=== PATIENT | female | born 1965 | race Caucasian/White ===

== ENCOUNTER 2023-09-09 08:23 | Emergency (ER) | payer BC, OTHER, SELFPAY ==
[2023-09-09] VITALS (8 sets, daily range): BP systolic 117–184; BP diastolic 68–107; PULSE 56–78; RESP 11–26; TEMP 36.8; O2SAT 92–100; BMI 27.4
--- NOTE | 2023-09-09 08:23 | ECG_ITS ---
APPROVED REPORT Exam: Resting ECG HR:69 bpm ECG Measurements Heart Rate 69 AXES OH 176 P 47 QRSd 95 QRS 25 QT 382 T 60 QTc 401 Conclusion SINUS RHYTHM LOW QRS VOLTAGE IN PRECORDIAL LEADS [QRS DEFLECTION < 1.0 mV IN CHEST LEADS] MODERATE ST DEPRESSION [0.05+ mV ST DEPRESSION] ABNORMAL ECG UNCONFIRMED REPORT Electronically signed by : Mick Riley MD 09/09/2023 17:47:12
--- NOTE | 2023-09-09 08:28 | XR_ITS ---
FINAL REPORT TECHNIQUE: Single view chest CLINICAL HISTORY: chest pain FINDINGS: A single view of the chest was obtained. The heart and mediastinum are within normal limits. The lungs are clear. There is no pneumothorax. There are postoperative changes to the right shoulder. IMPRESSION: No acute cardiopulmonary process. Reviewed, Interpreted and Dictated by Manoj Perkins III, MD Transcribed by Christal Wakefield Authenticated and [facility]
--- NOTE | 2023-09-09 08:30 | PC.NURSE ---
Dr. Vergara at BS for pt eval
--- NOTE | 2023-09-09 08:31 | PC.NURSE ---
dr abarca at bedside
--- NOTE | 2023-09-09 08:33 | CT_ITS ---
FINAL REPORT CLINICAL HISTORY: new onset headache FINDINGS: Axial images of the head were obtained without contrast. Coronal reformatted images were also obtained.This study was performed with techniques to keep radiation doses as low as reasonably achievable (ALARA). Individualized dose reduction techniques using automated exposure control or adjustment of mA and/or kV according to the patient's size were employed. There is no evidence of intracranial hemorrhage or mass. The ventricular size is within normal limits. There is no evidence of shift of the midline structures. No abnormal extra axial fluid collection is identified. No skull abnormality is seen on the bone window images. There is mucosal thickening of multiple sinuses. Fluid is seen in the maxillary sinuses consistent with acute maxillary sinusitis. IMPRESSION: No acute intracranial abnormality. Acute maxillary sinusitis. Reviewed, Interpreted and Dictated by Manoj Perkins III, MD Transcribed by Christal Wakefield Authenticated and [facility]
[2023-09-09 08:42] LABS: Basophils # 0.1 K/mm3 (0-0.2); Basophils % 0.7 % (0.1-2.0); Eosinophils # 0.3 K/mm3 (0.0-0.4); Eosinophils % 4.4 % (0.1-12.0); Hemoglobin 14.4 g/dL (12.2-16.2); Lymphocytes # 2.4 K/mm3 (0.7-4.5); Lymphocytes % 35.4 % (10-50); Mean Corpuscular HGB Conc 33.5 g/dL (31.8-35.4); Mean Corpuscular Hemoglobin 32.8 pg (27.0-31.2); Mean Corpuscular Volume 97.6 fl (81-99); Mean Platelet Volume 7.7 fl (7.4-10.4); Monocytes # 0.3 K/mm3 (0.1-1.0); Monocytes % 3.7 % (1.7-9.3); Neutrophils # 3.7 K/mm3 (1.8-7.8); Neutrophils % 55.7 % (37.0-80.0); Platelet Count 404 K/mm3 (142-424); Red Blood Count 4.41 M/mm3 (4.20-5.40); Red Cell Distribution Width 13.4 % (11.5-17.5); White Blood Count 6.7 K/mm3 (4.8-10.8)
[2023-09-09] MEDS: NITROGLYCERIN 0.4MG SL TABLET 0.400000000000000022 MG SL (08:53)
[2023-09-09] MEDS: ASPIRIN 81MG CHEWABLE TABLET 324 MG PO (08:54)
[2023-09-09] MEDS: RINGERS SOLUTION,LACTATED 500 ML 250 ML IV (08:55)
[2023-09-09] MEDS: PROCHLORPERAZINE 10MG/2ML VIAL 10 MG IV (08:55)
[2023-09-09] MEDS: ACETAMINOPHEN 1,000MG/100ML VIAL 1000 MG IV (08:55)
[2023-09-09] MEDS: KETOROLAC 30MG/ML VIAL 15 MG IV (08:55)
--- NOTE | 2023-09-09 08:55 | PC.NURSE ---
Pt gone to RAD via stretcher
--- NOTE | 2023-09-09 08:56 | HMH.EDCP ---
Discharge Plan Disposition Patient Disposition: Home, Self-Care Prescriptions Prescriptions: New ondansetron 4 mg tablet,disintegrating 4 mg PO Q6H PRN (Reason: nausea and vomiting) Qty: 10 0RF No Action omeprazole 10 mg capsule,delayed release(DR/EC) 10 mg PO DAILY turmeric-turmeric ext-pepper 500-3 mg capsule 1 mg PO DAILY bisoprolol-hydrochlorothiazide 2.5-6.25 mg tablet 1 tab PO DAILY bupropion HCl [Wellbutrin XL] 300 mg tablet extended release 24 hr 300 mg PO DAILY Qty: 90 0RF Wegovy 1.7 mg/0.75 mL pen injector 1.7 mg SQ WEEKLY atorvastatin 10 mg tablet 10 mg PO DAILY Referrals Follow up/Referrals: Provider,Referral, MD [Referring] - See instructions Activity Restrictions/Add. Instructions Additional Instructions/Restrictions: Call your family doctor to establish care for this visit to the emergency department and schedule follow-up within 48 hours to ensure improvement. If you have any worsening of your condition or any other concerning signs or symptoms, return to the emergency department or your primary care doctor for further evaluation. Take Tylenol 1000 mg every 6 hours (4 times daily) and ibuprofen 400 mg every 6 hours (4 times daily) as needed with food and water to prevent GI upset and kidney damage. Clinical Impressions Clinical Impression: Migraine, Chest pain Discharge ED Provider: Jl Vergara [facility] General Chief Complaint: Chest Pain Stated Complaint: Chest Pain Time Seen by Provider: 09/09/23 08:28 Mode of Arrival: Ambulatory Source of Information: Patient Limitations: No Limitations Description of Symptoms (Recalled from ER Triage Doc. by RN): Pt. states she feels like she has a migraine. She states she has a headache that started about 2 hours ago and has had three episodes of vomiting this morning. She complains of mild chest discomfort. She takes Wegovy and has not taken it since but took a dose last night. History of Present Illness HPI narrative: 58-year-old female history of hypertension presenting with multiple complaints. Patient states that she was brushing her teeth earlier this morning on 09/09 and started having a headache. Headache has been crescendo since that time. It is intense, photophobic and associated with vomiting. Patient states that she has had migraines in the past as a child, but has not had headaches of recent past. Denies any other neurologic deficits, vision changes, or any other concerns. Patient is having associated chest pressure that is tight, squeezing, associated with shortness of breath. Does not radiate, not associated with diaphoresis. Has been taking her Medicare prescribed Related Data Home Medications Medication Instructions Recorded Confirmed bisoprolol 2.5 1 tab PO DAILY 03/16/19 09/09/23 mg-hydrochlorothiazide 6.25 mg tablet omeprazole 10 mg capsule,delayed 10 mg PO DAILY 03/16/19 09/09/23 release turmeric 500 mg-black pepper 1 mg PO DAILY 03/16/19 09/09/23 extract 3 mg capsule atorvastatin 10 mg tablet 10 mg PO DAILY 09/09/23 09/09/23 semaglutide (weight loss) 1.7 1.7 mg SQ WEEKLY 09/09/23 09/09/23 mg/0.75 mL subcutaneous pen injector (Wegovy) Previous Rx's Medication Instructions Recorded bupropion HCl 300 mg 24 hr tablet, 300 mg PO DAILY #90 tabs 07/23/23 extended release (Wellbutrin XL) ondansetron 4 mg disintegrating 4 mg PO Q6H PRN nausea and 09/09/23 tablet vomiting #10 tabs Allergies Allergy/AdvReac Type Severity Reaction Status Date / Time No Known Allergies Allergy Verified 07/23/23 15:57 [facility] Disclaimer: The information contained in this section may have been updated after the patient was seen, as this information can be updated by other users. Medical History (Updated 09/09/23 @ 11:23 by Jl Vergara MD) Attention deficit disorder (ADD) in adult Concussion History of high blood pressure Surgical History (Updated 02/18/23 @ 14:44 by Taylor Brady APRN) History of hysterectomy Social History (Updated 02/18/23 @ 14:42 by Taylor Brady APRN) Smoking Status: Never smoker second hand exposure: No alcohol intake: current counseling given: No substance use type: denies use counseling given: No current occupational status: employed Travel in the last 8 weeks: None adopted: No caregiver/support person: No foster care: No household members: spouse housing: house lives independently: Yes marital status: number of children: 3 number of grandchildren: 4 education level: college Hx Recent Travel: No sexually active: No caffeine: No physical activity: none working smoke detector in home: Yes fire extinguisher in home: Yes carbon monox detector in home: No firearms in home: Yes firearms unloaded and locked: Yes do you feel safe at home: Yes victim of physical abuse: No victim of emotional abuse: No victim of sexual abuse: No would you like helpful sources: No ROS Obtained: Yes All systems reviewed & no additional complaints except as documented Physical Exam General General appearance: alert Neck Neck exam: Present trachea midline Chest Chest inspection: Present normal inspection and symmetric chest wall rise Respiratory Respiratory exam: Present normal lung sounds bilaterally; Absent respiratory distress, wheezes, stridor, accessory muscle use or prolonged expiratory phase Cardiovascular Cardiovascular exam: Present regular rate and normal rhythm Extremities Exam Extremities exam: Absent edema Neurological Exam Neurological exam: Present alert, oriented X3 and CN II-XII intact Skin Skin exam: Present warm and dry; Absent cyanosis, diaphoresis or pallor HEART Score HEART Score HEART Score assessment performed?: Yes History (anamnesis): Slightly suspicious ECG: Normal Age: 45-65 years Risk factors: 1-2 risk factors Troponin: </= normal limit HEART Score: 2 Critical Care Critical Care Time Critical Care Time: No Medical Decision Making Medical Records Medical records reviewed: Yes I reviewed the patient's medical records. Henri Inquiry Pt receiving controlled substance: No Henri was queried for this patient: No Vital Signs Vital Signs: 09/09/23 08:26 09/09/23 08:31 09/09/23 09:30 Temperature 98.3 F Temperature Source Oral Pulse Rate 73 61 Pulse Rate [Right Brachial] 78 Respiratory Rate 26 H 19 13 Blood Pressure 184/102 H 145/86 H Blood Pressure [Right Arm] 170/107 H Blood Pressure Mean Blood Pressure Mean [Right Arm] 128 Blood Pressure Source [Right Arm] Automatic Cuff Blood Pressure Position [Right Arm] Sitting 02 Sat by Pulse Oximetry 100 100 98 Oxygen Delivery Method Room Air Room Air Room Air 09/09/23 10:00 09/09/23 10:31 09/09/23 11:00 Temperature Temperature Source Pulse Rate 60 59 L 63 Pulse Rate [Right Brachial] Respiratory Rate 12 14 12 Blood Pressure 133/75 131/70 117/68 Blood Pressure [Right Arm] Blood Pressure Mean 84 Blood Pressure Mean [Right Arm] Blood Pressure Source [Right Arm] Blood Pressure Position [Right Arm] 02 Sat by Pulse Oximetry 94 L 94 L 95 Oxygen Delivery Method Room Air Room Air 09/09/23 11:30 Temperature Temperature Source Pulse Rate 56 L Pulse Rate [Right Brachial] Respiratory Rate 11 L Blood Pressure 129/73 Blood Pressure [Right Arm] Blood Pressure Mean 92 Blood Pressure Mean [Right Arm] Blood Pressure Source [Right Arm] Blood Pressure Position [Right Arm] 02 Sat by Pulse Oximetry 92 L Oxygen Delivery Method Lab Data Labs: Lab Results 09/09/23 08:31: WBC 6.7, RBC 4.41, Hgb 14.4, Hct 43.0, MCV 97.6, MCH 32.8 H, MCHC 33.5, RDW 13.4, Plt Count 404, MPV 7.7, Neut % (Auto) 55.7, Lymph % (Auto) 35.4, Lincoln % (Auto) 3.7, Eos % (Auto) 4.4, Baso % (Auto) 0.7, Neut # (Auto) 3.7, Lymph # (Auto) 2.4, Lincoln # (Auto) 0.3, Eos # (Auto) 0.3, Baso # (Auto) 0.1, Sodium 139, Potassium 3.5, Chloride 102, Carbon Dioxide 28, Anion Gap 12.5, BUN 13, Creatinine 0.70, Estimated Creat Clear 109, Estimated GFR 87, Est GFR ( Amer) 105, Glucose 96, Calcium 9.6, Total Bilirubin 0.7, AST 50 H, ALT 32, Alkaline Phosphatase 90, Troponin I < 0.01, Total Protein 7.6, Albumin 4.4, Globulin 3.2, Albumin/Globulin Ratio 1.4 09/09/23 11:21: Troponin I 0.02 09/09/23 08:31 09/09/23 08:31 Response Orders (Tests/Meds): ED MEDICATIONS Generic Name Dose Route Start Last Admin Trade Name Freq PRN Reason Stop Dose Admin Nitroglycerin 0.4 mg 09/09/23 08:35 09/09/23 08:53 Nitroglycerin 0.4mg Sl Tablet SL 10/09/23 08:34 0.4 mg Q5MINP PRN Administration Chest Pain Discontinued Medications Generic Name Dose Route Start Last Admin Trade Name Freq PRN Reason Stop Dose Admin Acetaminophen 1,000 mg 09/09/23 08:33 09/09/23 08:55 Acetaminophen 1,000mg/100ml Vial IV 09/09/23 08:34 1,000 mg ONCE ONE Administration Aspirin 324 mg 09/09/23 08:28 09/09/23 08:54 Aspirin 81mg Chewable Tablet PO 09/09/23 08:29 324 mg ONCE ONE Administration Dexamethasone 10 mg 09/09/23 10:22 09/09/23 10:26 Dexamethasone 4mg Tablet PO 09/09/23 10:23 10 mg ONCE ONE Administration Lactated Ringer's 500 mls @ 250 mls/hr 09/09/23 08:34 09/09/23 08:55 Lactated Ringer's 500ml IV 09/09/23 10:33 250 mls/hr .Q2H ONE Administration Ketorolac Tromethamine 15 mg 09/09/23 08:33 09/09/23 08:55 Ketorolac 30mg/Ml Vial IV 09/09/23 08:34 15 mg ONCE ONE Administration Prochlorperazine Edisylate 10 mg 09/09/23 08:33 09/09/23 08:55 Prochlorperazine 10mg/2ml Vial IV 09/09/23 08:34 10 mg ONCE ONE Administration ORDERS Category Date Time Status CT head/brain wo con Stat Cat Scan 09/09/23 08:33 Completed CXR --portable [XR chest portable] Stat Exams 09/09/23 08:28 Completed CBC w/Auto Diff [Complete Blood Count Auto Diff] Stat Lab 09/09/23 08:31 Completed CMP [Comprehensive Metabolic Panel] Stat Lab 09/09/23 08:31 Completed Trop I [Troponin I] Stat Lab 09/09/23 08:31 Completed Troponin I Q3H Lab 09/09/23 11:21 Completed Troponin I Q3H Lab 09/09/23 14:30 Ordered ECG initial Besson Routine Y 09/09/23 08:23 Completed MDM Narrative Medical Decision Narrative: 58-year-old female history of hypertension presenting with multiple complaints. Patient states that she was brushing her teeth earlier this morning on 09/09 and started having a headache. Headache has been crescendo since that time. It is intense, photophobic and associated with vomiting. Patient states that she has had migraines in the past as a child, but has not had headaches of recent past. Denies any other neurologic deficits, vision changes, or any other concerns. Patient is having associated chest pressure that is tight, squeezing, associated with shortness of breath. Does not radiate, not associated with diaphoresis. Has been taking her Medicare prescribe. It to be noted that patient has been taking semaglutide subcutaneously, the effects of which are difficult to discern in this case complicating care. History was obtained via conversation with patient. On arrival, patient hemodynamically stable, alert, oriented x4, appropriate, GCS 15, moving all extremities spontaneously, pupils equal and reactive to light. Full physical exam performed and significant for anxious appearing woman in no acute distress. Tearful. Not actively retching or vomiting on my exam. Neurologically intact. Cardiac exam normal. Pulses equal and symmetric. Differential includes migraine, headache, intracranial hemorrhage, intracranial mass, ACS, MA, pneumonia, pneumothorax, anxiety, among others. Patient was given 324 mg aspirin, Compazine, Toradol, Tylenol, fluid bolus, nitroglycerin for symptomatic management and correction of underlying abnormalities. Workup independently interpreted and significant for normal CBC or chemistry. Troponin negative. CT head without acute intracranial hemorrhage or mass. See radiology read for full review of final results. Independent interpretation of EKG shows sinus rhythm 69 beats a minute no ST or T wave changes concerning for acute ischemia. OK, QRS, QT intervals within normal limits. Heart score 2. Because pain started just before patient arrival, patient placed in observation. Patient was placed in observation beginning at 8:45 AM in order to obtain serial delta troponins and cardiac monitoring, as well as obtain headache cocktail for severe migraine and determine need for admission versus home-going. The patient was provided nitroglycerin, headache cocktail while awaiting results. Independent interpretation of results demonstrated negative delta troponin. On reevaluation, patient stating that her headache is completely resolved and she is feeling much better. No longer nauseated. At this time, I feel patient is appropriate for discharge. Total observation time 3 hours. Because patient at baseline without signs or symptoms of clinical decompensation, deemed appropriate for discharge. Results were relayed to patient who voiced understanding and were agreeable to outpatient management and follow up. At the time of discharge the patient was hemodynamically stable, tolerating PO, and mobilizing appropriately.
[2023-09-09 08:58] LABS: Chloride 102 mmol/L (98-107); Potassium 3.5 mmoL/L (3.5-5.1); Sodium 139 mmol/L (136-145)
[2023-09-09 09:01] LABS: Alanine Aminotransferase 32 U/L (12-78); Albumin Level 4.4 g/dl (3.5-5.0); Albumin/Globulin Ratio 1.4 (1.1-1.8); Alkaline Phosphatase 90 U/L (38-126); Anion Gap 12.5 mEq/L (5-15); Aspartate Amino Transferase 50 U/L (14-36); Bilirubin,Total 0.7 mg/dl (0.2-1.3); Blood Urea Nitrogen 13 mg/dl (7-17); Calcium 9.6 mg/dl (8.4-10.2); Carbon Dioxide 28 mmol/L (22.0-30.0); Creatinine Clearance Estimated 109 mL/min (50-200); Estimated Glomerular Filt Rate 87 ml/min (>60); GFR (African American) 105 ML/MIN (>60); Globulin 3.2 g/dL (1.3-3.2); Glucose 96 mg/dl (74-100); Total Protein,Serum 7.6 g/dl (6.3-8.2)
[2023-09-09 09:14] LABS: Troponin I < 0.01 ng/ml (0.00-0.034)
--- NOTE | 2023-09-09 09:29 | PC.NURSE ---
Pt back to room from [facility]
--- NOTE | 2023-09-09 10:21 | PC.NURSE ---
Rounded on pt. Warm blanket provided. No needs at this time.
[2023-09-09] MEDS: DEXAMETHASONE 4MG TABLET 10 MG PO (10:26)
--- NOTE | 2023-09-09 11:04 | PC.NURSE ---
Dr. Vergara at BS to update pt on results and current POC
[2023-09-09 11:46] LABS: Troponin I 0.02 ng/ml (0.00-0.034)
== END 2023-09-09 12:11 | disposition home or self-care (01) ==
PROVIDERS: Emergency Provider Emergency Medicine; PCP Nurse Practitioner Family
DX: R07.9 Chest pain, unspecified (principal); G43.909 Migraine, unspecified, not intractable, without status migrainosus; R11.10 Vomiting, unspecified
CPT/HCPCS: 70450; 71045; 80053; 84484; 85025; 93005; 96361; 96374; 96375; 99285; J0131

== ENCOUNTER 2023-11-25 15:05 | Outpatient (CLI) | payer BC, OTHER, SELFPAY ==
[2023-11-25 15:35] VITALS: PULSE 73; PULSE 76
[2023-11-25] MEDS: ALBUTEROL 0.083% 2.5 MG/3 ML NEB IH (15:35)
== END 2023-11-25 23:59 ==
PROVIDERS: PCP Internal Medicine; Visit Provider Nurse Practitioner Family
DX: J40 Bronchitis, not specified as acute or chronic (principal)
CPT/HCPCS: 94060; 94640

== ENCOUNTER 2024-02-06 07:19 | Outpatient (CLI) | payer BC, OTHER, SELFPAY ==
--- NOTE | 2024-02-06 | CA_ITS ---
APPROVED REPORT Exam: Pharmacologic Technologist: Mirna Pedraza, Ht: 5 ft 6 in Wt: 169 lbs BSA: 1.86 m2 HR: 60 bpm BP: 155/86 mmHg Rhythm: NSR Medical History Medications: Omeprazole,,,,, Atorvastatin,,,,, Fluoxetine,,,,, Trazodone,,,,, TUrmeric,,,,, Estradilol,,,,, BisOPROLOL-HCTZ,,,,, WELLBUTRIN XL,,,,, WEgovy,,,,, [place],,,,, Stress Test Details Test: LEXISCAN Reason for pharmacologic stress test: physical limitation. HR Resting HR: 65 bpm Max Heart Rate (APMHR): 164 bpm Max HR Achieved: 85 bpm Target HR (85% APMHR): 139 bpm % of APMHR: 52 Recovery HR: 66 bpm BP Resting BP: 155.0/86.0 mmHg Max BP: 158.0/91.0 mmHg Recovery BP: 141.0/81.0 mmHg ECG Resting ECG: NSR, low voltage QRS Stress ECG: No significant ST changes Arrhythmia: Occasional PVCs Clinical Exercise duration: 04:00 min Highest Stage Achieved: Exercise capacity: 1.0 METs Stress ECG Conclusion Symptoms: SOA, head discomfort. No CP. Arrhythmias/Ectopy: Occasional PVC. ST-T Changes: No significant ST changes. Conclusion: Unremarkable Lexiscan stress. Myoview images are reported separately. Test Summary REST . . . . . . . Resting REST 04:32 . . 65 . 155/ 86 . . Stage 1 01:00 . . 77 . . . . Stage 2 01:00 . . 73 . 158/ 91 . . Stage 3 01:00 . . 72 . 147/ 83 . . Stage 4 01:00 . . 71 . 152/ 75 . Stop exercise at 04:00 RECOVERY 01:00 . . 69 . . . . RECOVERY 02:00 . . 71 . 142/ 83 . . RECOVERY 03:00 . . 66 . 141/ 81 . . RECOVERY 03:23 . . 67 . 141/ 81 . . Electronically signed by : Kasey Boston MD 02/09/2024 00:53:29
--- NOTE | 2024-02-06 07:19 | NM_ITS ---
APPROVED REPORT Exam: Nuclear Stress Test Indication: chest pain..soa..palpitations..fatigue Patient Location: Outpatient Stress Tech: Mirna Andrade [place] Tech:Noelle PelaezREENA RT(R)(N) Ht: 5 ft 5 in Wt: 165 lbs Bra Size: 38f HR: 65 bpm BP: 155/86 mmHg BSA: 1.82 m2 Rhythm: NSR TID: 0.99 BMI: 27.4 History: chest pain..soa..palpitations..fatigue Procedure: Patient received 0.4 mg of intravenous Lexiscan, resting heart rate 65 bpm, resting blood pressure 155/86 mmHg, with Lexiscan maximum heart rate achieved was 85 bpm which is 85 % of the maximum predicted heart rate and blood pressure was 158/91 mmHg. Cardiac Stress and Resting SPECT Images: Cardiac Stress and Resting SPECT images were obtained using technetium 99m Myoview 32.4 mCi stress and 10.98 mCi at rest. Resting and stress imaging in supine and prone positions demonstrate no evidence of fixed or reversible perfusion defects. Gated imaging demonstrates normal global and regional LV systolic function. LVEF is calculated at 63%. Conclusion: No evidence of fixed or reversible perfusion defects. Gated imaging demonstrates normal global and regional LV systolic function. LVEF is calculated at 63%. Electronically signed by : Kasey Boston MD 02/09/2024 00:57:06
--- NOTE | 2024-02-06 07:27 | CA_ITS ---
APPROVED REPORT EXAM: Comprehensive 2D, Doppler, and color-flow Echocardiogram Cotton Wringer: Vickie Dumont RDCS Ht: 5 ft 5 in Wt: 169lbs BSA: 1.84 BP: 121/77 mmHg Indications: SOA,ABN EKG,CP M-Mode Dimensions RVDd 2.51 cm (0.9-2.6) LA Diam 3.01 cm (1.9-4.0) LVDd 5.09 cm (3.5-5.7) LVDs 3.80 cm (3.5-5.7) IVSd 0.65 cm (0.6-1.1) PWd 0.72 cm (0.6-1.1) EF (Teich) 49.70% FS 25.30% EDV (Teich) 123.20 mL ESV (Teich) 62.00 mL LV Diastology E Decel Time 113 (160-240 msec) E/A Ratio 1.2 Aortic Valve AI PHT 746.00 ms Mitral Valve MV E Max Harshad. 100.0 (40-130 cm/s) MV A Velocity 84.0 (40-130 cm/s) E/A Ratio 1.19 MV PHT 33.0 ms Tricuspid Valve TR P. Velocity 227.00 cm/s RAP Estimate 10.00 mmHg RVSP 30.70 mmHg Left Ventricle The left ventricle is normal size. The left ventricular systolic function is normal. The left ventricular ejection fraction is within the normal range. There is normal left ventricular wall thickness. There is normal LV segmental wall motion. The left ventricular diastolic function is normal. LVEF is 55%. Right Ventricle The right ventricle is normal size. The right ventricular systolic function is normal. Atria The left atrium size is normal. The right atrium size is normal. There is no Doppler evidence of interatrial shunt. Aortic Valve The aortic valve is mildly thickened. There is no aortic valvular stenosis. Mild aortic regurgitation. Mitral Valve The mitral valve leaflets are mildly thickened. No evidence of mitral valve stenosis. Mild mitral regurgitation. Tricuspid Valve The tricuspid valve leaflets are thin and pliable. Mild tricuspid regurgitation. RVSP is normal. Pulmonic Valve The pulmonary valve is normal in structure. Mild pulmonic regurgitation. Great Vessels The aortic root is normal in size. The ascending aorta is not well-visualized. IVC is normal in size and collapses >50% with inspiration. Pericardium There is no pericardial effusion. Other Information Study Quality: Fair Conclusion Normal biventricular systolic function. Mild AI, mild MR, mild TR, mild VT. Electronically signed by : Kasey Boston MD 02/09/2024 00:37:39
[2024-02-06] MEDS: ISOTOPE MYOVIEW (PER STUDY) 1 DOSE IV (10:18)
[2024-02-06] MEDS: REGADENOSON 0.4MG/5ML SYRINGE 0.400000000000000022 MG IV (10:18)
[2024-02-06] MEDS: SODIUM CHLORIDE 0.9% 10ML SYR (RAD ONLY) 10 ML IV ×2 (10:18)
== END 2024-02-06 23:59 | disposition home or self-care (01) ==
LOC: RAD 07:19
PROVIDERS: PCP Nurse Practitioner Family; Visit Provider Nurse Practitioner
DX: R94.31 Abnormal electrocardiogram [ECG] [EKG] (principal); R06.00 Dyspnea, unspecified; R07.9 Chest pain, unspecified
CPT/HCPCS: 78452; 93017; 93018; 93306; A9502; J2785

== ENCOUNTER 2024-11-23 16:45 | Outpatient (CLI) | payer BC, OTHER, SELFPAY ==
--- NOTE | 2024-11-23 16:54 | XR_ITS ---
PROCEDURE INFORMATION: Exam: XR Chest Exam date and time: 11/23/2024 4:55 PM Age: 59 years old Clinical indication: Cough; Additional info: Cough/congestion TECHNIQUE: Imaging protocol: Radiologic exam of the chest. Views: 2 views. COMPARISON: CR XR CHEST PORTABLE 09/09/2023 8:56 AM FINDINGS: Lungs: Unremarkable. No consolidation. Pleural spaces: Unremarkable. No pleural effusion. No pneumothorax. Heart/Mediastinum: Unremarkable. No cardiomegaly. Bones/joints: Unremarkable. IMPRESSION: No acute findings.
== END 2024-11-23 23:59 | disposition home or self-care (01) ==
LOC: RAD 16:47
PROVIDERS: PCP Nurse Practitioner Family; Visit Provider Nurse Practitioner
DX: R09.89 Other specified symptoms and signs involving the circulatory and respiratory systems (principal)
CPT/HCPCS: 71046